=== PATIENT | male | born 2000 | race Two or more races ===

== ENCOUNTER 2024-07-25 19:50 | Emergency (ER) | payer OTHER ==
[~2024-07-25] VITALS: Ht 167.6 cm; Wt 79.4 kg
[2024-07-25] MEDS ORDERED: TDAP [DIPH/PERTUSSIS/TET] 0.5 ML VIAL IM ONE (20:26)
[2024-07-25] MEDS: TDAP [DIPH/PERTUSSIS/TET] 0.5 ML VIAL IM ONE (20:27)
[2024-07-25 20:45] VITALS: BP 122/74; TEMP 98.3; O2SAT 100
== END 2024-07-25 20:46 | disposition home or self-care (01) ==
LOC: ER 20:08
DX: S61.213A Laceration without foreign body of left middle finger without damage to nail, initial encounter (principal); W25.XXXA Contact with sharp glass, initial encounter; Y93.G1 Activity, food preparation and clean up; Y92.511 Restaurant or cafe as the place of occurrence of the external cause; Y99.0 Civilian activity done for income or pay
CPT/HCPCS: 90715